=== PATIENT | female | born 1985 | race Hispanic/Latino ===

== ENCOUNTER 2020-07-22 22:42 | Inpatient (IN) | payer MEDICAID ==
[~2020-07-22] VITALS: Ht 157.5 cm; Wt 90.4 kg
[2020-07-22] MEDS ORDERED: ONDANSETRON HCL 4 MG/2 ML VIAL ONE (23:20)
[2020-07-22] MEDS ORDERED: KETOROLAC TROMETHAMINE 30MG/ML ONE (23:21)
[2020-07-22 23:22] LABS: BASOPHILS % (AUTO) 0.3 % (0.0-5.0); HEMATOCRIT 37.8 % (36-48); LYMPHOCYTES % (AUTO) 23.2 % (21.0-51.0); MEAN CORPUSCULAR HEMOGLOBIN 31.2 pg (27.0-33.0); MEAN CORPUSCULAR HGB CONC 36.5 g/dL (32.0-36.0); MEAN CORPUSCULAR VOLUME 85.3 fL (79-99); MONOCYTES % (AUTO) 4.9 % (3.0-13.0); NEUTROPHILS % (AUTO) 69.3 % (40.0-77.0); PLATELET COUNT (AUTO) 252 K/uL (130-400); RED BLOOD CELL COUNT(AUTO) 4.43 MIL/uL (4.00-5.50); RED CELL DISTRIBUTION WIDTH 12.4 % (11.0-15.5); WHITE BLOOD COUNT (AUTO) 7.1 K/uL (4.8-10.8)
[2020-07-22 23:31] LABS: INR 0.88 (0.85-1.15); PARTIAL THROMBOPLASTIN TIME 28.2 SEC (26.3-35.5); PROTHROMBIN TIME 9.6 SEC (9.6-11.6)
[2020-07-22 23:34] LABS: APPEARANCE,URINE Turbid (CLEAR); BILIRUBIN,URINE Negative (NEGATIVE); COLOR,URINE Yellow (YELLOW); GLUCOSE, URINE (UA) >=1000 mg/dL (NEGATIVE); KETONES,URINE Trace mg/dL (NEGATIVE); LEUKOCYTE ESTERASE ,URINE Trace (NEGATIVE); NITRATE,URINE Negative (NEGATIVE); OCCULT BLOOD,URINE Negative (NEGATIVE); PROTEIN,URINE POS 1+ mg/dL (NEGATIVE); UROBILINOGEN,URINE 0.2 mg/dL (0.2-1.0)
[2020-07-22 23:43] LABS: AMPHET/METH SCREEN,URINE NEGATIVE (NEGATIVE); BARBITURATE SCREEN, URINE NEGATIVE (NEGATIVE); BENZODIAZEPINES SCREEN,URINE NEGATIVE (NEGATIVE); CANNABINOID SCREEN,URINE NEGATIVE (NEGATIVE); COCAINE SCREEN,URINE NEGATIVE (NEGATIVE); OPIATE SCREEN,URINE NEGATIVE (NEGATIVE); PHENCYCLIDINE SCREEN,URINE NEGATIVE (NEGATIVE)
[2020-07-22 23:46] LABS: ALANINE AMINOTRANSFERASE 22 U/L (12-78); ALBUMIN 2.9 g/dL (3.5-5.0); ASPARTATE AMINOTRANSFERASE 18 U/L (10-37); BILIRUBIN,TOTAL 0.2 mg/dL (0.2-1.0); CARBON DIOXIDE 24 mmol/L (21-32); CREATINE KINASE, TOTAL 42 U/L (21-232); CREATININE 0.6 mg/dL (0.5-1.5); GLOMERULAR FILTR. RATE CALC 121 mL/min (>60); GLUCOSE,RANDOM 335 mg/dL (70-105); MYOGLOBIN 13 ng/mL (10-92); SODIUM SERUM 114 mmol/L (136-145); TOTAL PROTEIN, SERUM 5.3 g/dL (6.0-8.3); TROPONIN I < 0.04 ng/mL (0.00-0.06); UREA NITROGEN, BLOOD 10 mg/dL (7-18)
[2020-07-22 23:51] LABS: BACTERIA,URINE Rare /HPF (None Seen); RBC,URINE None Seen /HPF (0-1)
[2020-07-22 23:57] LABS: POTASSIUM 3.1 mmol/L (3.5-5.1)
[2020-07-22 23:58] LABS: CHLORIDE 84 mmol/L (101-111)
[2020-07-23] MEDS ORDERED: INSULIN HUMULIN R 100 UNIT/ML 3ML ONE (01:10)
[2020-07-23] MEDS ORDERED: POTASSIUM CHLORIDE 20 MEQ ERTAB PO ONE (01:41)
[2020-07-23] MEDS ORDERED: POTASSIUM CHLORIDE 20MEQ/100ML 100 ML IV PRN (04:00)
[2020-07-23] MEDS ORDERED: POTASSIUM CHLORIDE 10% ELIXIR 20 MEQ/15 ML UDCUP PO PRN (04:00)
[2020-07-23] MEDS ORDERED: LIDOCAINE HCL-MPF 1% 2ML VIAL IV PRN (04:00)
[2020-07-23] MEDS ORDERED: POTASSIUM CHLORIDE 20 MEQ ERTAB PO PRN (04:00)
[2020-07-23 04:32] VITALS: BP 134/90
[2020-07-23 05:14] LABS: HEMATOCRIT 34.9 % (36-48); RED BLOOD CELL COUNT(AUTO) 4.06 MIL/uL (4.00-5.50); RED CELL DISTRIBUTION WIDTH 12.6 % (11.0-15.5); WHITE BLOOD COUNT (AUTO) 6.6 K/uL (4.8-10.8)
[2020-07-23] MEDS ORDERED: ONDANSETRON HCL 4 MG/2 ML VIAL IVP PRN (05:30)
[2020-07-23] MEDS ORDERED: HYDRALAZINE HCL 20 MG/ML VIAL IV PRN (05:30)
[2020-07-23] MEDS ORDERED: GLUCAGON 1MG KIT 1 MG ML IM PRN (05:30)
[2020-07-23] MEDS ORDERED: DEXTROSE 50%-WATER 50 ML DISP.SYRIN IV PRN (05:30)
[2020-07-23] MEDS: SODIUM CHLORIDE 0.9% 1000ML 1,000 ML IV SCH ×2 (05:31→15:30)
[2020-07-23 06:06] LABS: POTASSIUM 3.7 mmol/L (3.5-5.1)
[2020-07-23 06:07] LABS: CREATININE 0.5 mg/dL (0.5-1.5)
[2020-07-23] MEDS: INSULIN R PO SS1 SQ SCH ×4 (06:20→20:20)
[2020-07-23 07:41] LABS: HEMATOCRIT 35.6 % (36-48); MEAN CORPUSCULAR HEMOGLOBIN 30.1 pg (27.0-33.0); MEAN CORPUSCULAR HGB CONC 34.6 g/dL (32.0-36.0); RED BLOOD CELL COUNT(AUTO) 4.09 MIL/uL (4.00-5.50); RED CELL DISTRIBUTION WIDTH 12.8 % (11.0-15.5); WHITE BLOOD COUNT (AUTO) 6.1 K/uL (4.8-10.8)
[2020-07-23 07:55] LABS: CREATININE 0.7 mg/dL (0.5-1.5); POTASSIUM 3.9 mmol/L (3.5-5.1)
[2020-07-23 08:00] VITALS: BP 133/88
[2020-07-23] MEDS: FAMOTIDINE 20MG TAB 20 MG TAB PO SCH (08:27)
[2020-07-23 08:43] LABS: HEMOGLOBIN A1C 11.6 % (4.0-6.0)
[2020-07-23 11:47] LABS: HEMATOCRIT 36.7 % (36-48); MEAN CORPUSCULAR HEMOGLOBIN 30.2 pg (27.0-33.0); MEAN CORPUSCULAR HGB CONC 34.6 g/dL (32.0-36.0); MEAN CORPUSCULAR VOLUME 87.2 fL (79-99); RED BLOOD CELL COUNT(AUTO) 4.21 MIL/uL (4.00-5.50); WHITE BLOOD COUNT (AUTO) 5.6 K/uL (4.8-10.8)
[2020-07-23 12:01] LABS: CREATININE 0.6 mg/dL (0.5-1.5); POTASSIUM 4.2 mmol/L (3.5-5.1)
[2020-07-23 12:46] VITALS: BP 110/84
[2020-07-23 15:30] LABS: HEMATOCRIT 36.9 % (36-48); MEAN CORPUSCULAR HEMOGLOBIN 30.1 pg (27.0-33.0); MEAN CORPUSCULAR HGB CONC 34.7 g/dL (32.0-36.0); MEAN CORPUSCULAR VOLUME 86.8 fL (79-99); RED BLOOD CELL COUNT(AUTO) 4.25 MIL/uL (4.00-5.50); RED CELL DISTRIBUTION WIDTH 12.7 % (11.0-15.5); WHITE BLOOD COUNT (AUTO) 5.6 K/uL (4.8-10.8)
[2020-07-23 15:48] LABS: CREATININE 0.6 mg/dL (0.5-1.5); POTASSIUM 3.8 mmol/L (3.5-5.1)
[2020-07-23 18:17] VITALS: BP 102/60
[2020-07-23 19:02] LABS: HEMATOCRIT 36.9 % (36-48); MEAN CORPUSCULAR HEMOGLOBIN 29.9 pg (27.0-33.0); MEAN CORPUSCULAR HGB CONC 34.4 g/dL (32.0-36.0); MEAN CORPUSCULAR VOLUME 86.8 fL (79-99); RED BLOOD CELL COUNT(AUTO) 4.25 MIL/uL (4.00-5.50); RED CELL DISTRIBUTION WIDTH 12.7 % (11.0-15.5); WHITE BLOOD COUNT (AUTO) 6.9 K/uL (4.8-10.8)
[2020-07-23 19:29] LABS: CREATININE 0.8 mg/dL (0.5-1.5); POTASSIUM 3.6 mmol/L (3.5-5.1)
[2020-07-23] MEDS: ACETAMINOPHEN 325 MG TAB PO PRN (20:02)
[2020-07-23 20:08] VITALS: BP 123/84
[2020-07-23 23:24] VITALS: BP 116/56
[2020-07-23 23:49] LABS: HEMATOCRIT 36.1 % (36-48); MEAN CORPUSCULAR HEMOGLOBIN 29.6 pg (27.0-33.0); MEAN CORPUSCULAR HGB CONC 34.3 g/dL (32.0-36.0); MEAN CORPUSCULAR VOLUME 86.2 fL (79-99); RED BLOOD CELL COUNT(AUTO) 4.19 MIL/uL (4.00-5.50); RED CELL DISTRIBUTION WIDTH 12.8 % (11.0-15.5); WHITE BLOOD COUNT (AUTO) 7.5 K/uL (4.8-10.8)
[2020-07-24] VITALS (7 sets, daily range): BP systolic 98–133; BP diastolic 56–91
[2020-07-24 00:02] LABS: CREATININE 0.7 mg/dL (0.5-1.5); POTASSIUM 3.3 mmol/L (3.5-5.1)
[2020-07-24] MEDS: SODIUM CHLORIDE 0.9% 1000ML 1,000 ML IV SCH ×2 (01:30→11:30)
[2020-07-24 05:30] LABS: HEMATOCRIT 35.3 % (36-48); MEAN CORPUSCULAR HEMOGLOBIN 29.9 pg (27.0-33.0); MEAN CORPUSCULAR HGB CONC 34.3 g/dL (32.0-36.0); MEAN CORPUSCULAR VOLUME 87.2 fL (79-99); RED BLOOD CELL COUNT(AUTO) 4.05 MIL/uL (4.00-5.50); RED CELL DISTRIBUTION WIDTH 12.8 % (11.0-15.5); WHITE BLOOD COUNT (AUTO) 6.8 K/uL (4.8-10.8)
[2020-07-24 05:59] LABS: ALBUMIN 2.7 g/dL (3.5-5.0); BILIRUBIN,DIRECT 0.1 mg/dL (0.0-0.3); BILIRUBIN,TOTAL 0.3 mg/dL (0.2-1.0); CREATININE 0.6 mg/dL (0.5-1.5); MAGNESIUM 1.5 mg/dL (1.80-2.40); POTASSIUM 3.5 mmol/L (3.5-5.1); TOTAL PROTEIN, SERUM 6.6 g/dL (6.0-8.3)
[2020-07-24] MEDS: INSULIN R PO SS1 SQ SCH ×4 (06:54→22:00)
[2020-07-24] MEDS: FAMOTIDINE 20MG TAB 20 MG TAB PO SCH (08:23)
--- NOTE | 2020-07-24 12:05 | NUR ---
MELISSA- SPOEKK TO PATIENT AT BEDSIDE STATES IS INDEPENDENT, NO DME, DRIVES, LIVES WITH 8 YEAR ONLY SON, MOM AND SISTER NEARBY, SEES DR. [place], HAS FOLLOW UP APPOINTMENT WITH [employer] [facility] TOMORROW DCP HOME, YORDAN TO FOLLOW NB: RN AND AIDE AT [facility] DESCRIBED PT SLOW, SLEEP, POSSIBLYLETHARGIC.? AGREE PT IS SLOW TO RESPOND. DESCRIBING HER FAMILY STRUCTURE, TALKED AOBUT HER BROTHER, WHO WHOM SHE WAS CLOSE TOO. FACE LIGHTS UP WHEN TALKS ABOUT HER SON STARTING SCHOOL THIS WEEK ONLINE. CM DOES NOT ASSESS LETHARGIC, JUST A BIT WITHDRAWN AND SLOW TO OPEN UP IN A CONVERSATION DCP IS HOME. TEXT TO [facility] RE DCP PLAN, MG 1.5, POSS DC AFTER REPLACEMENT?... PENDING RESPONSE Addendum: 07/24/20 at 1210 by KENDY ALBRECHT RN CM Amended: Links added.
[2020-07-24] MEDS ORDERED: MAGNESIUM 4GM PREMIX 100ML 100 ML IV PRN (12:15)
[2020-07-24] MEDS: LACTULOSE 20 GM/30 ML UDCUP PO SCH (12:50)
[2020-07-24] MEDS: INSULIN LISPRO 100 UNIT/ML 3ML SQ SCH (17:18)
[2020-07-24] MEDS ORDERED: INSULIN GLARGINE 100 UNITS/ML 10 ML VIAL SQ SCH (21:00)
[2020-07-25 03:26] VITALS: BP 94/55
[2020-07-25 06:24] LABS: BASOPHILS % (AUTO) 0.5 % (0.0-5.0); EOSINOPHILS % (AUTO) 2.9 % (0.0-8.0); HEMATOCRIT 38.7 % (36-48); LYMPHOCYTES % (AUTO) 20.5 % (21.0-51.0); MEAN CORPUSCULAR HEMOGLOBIN 29.8 pg (27.0-33.0); MEAN CORPUSCULAR HGB CONC 34.1 g/dL (32.0-36.0); MEAN CORPUSCULAR VOLUME 87.4 fL (79-99); MONOCYTES % (AUTO) 5.3 % (3.0-13.0); NEUTROPHILS % (AUTO) 69.7 % (40.0-77.0); PLATELET COUNT (AUTO) 218 K/uL (130-400); RED BLOOD CELL COUNT(AUTO) 4.43 MIL/uL (4.00-5.50); RED CELL DISTRIBUTION WIDTH 12.8 % (11.0-15.5); WHITE BLOOD COUNT (AUTO) 6.6 K/uL (4.8-10.8)
[2020-07-25] MEDS: INSULIN R PO SS1 SQ SCH ×2 (06:31→12:03)
[2020-07-25 06:39] LABS: CREATININE 0.5 mg/dL (0.5-1.5); MAGNESIUM 1.9 mg/dL (1.80-2.40); POTASSIUM 3.7 mmol/L (3.5-5.1)
--- NOTE | 2020-07-25 08:45 | NUR ---
AM ASSESSMENT PT SITTING IN BED, WATCHING TV. A/O X 4. NO SOB. NO DISTRESS NOTED. DENIES PAIN OR DISCOMFORT. DENIES PALPITATIONS. TELE:SR. DENIES N/V AND/OR DIARRHEA. FLUID RESTRICTION REINFORCED. UP AD NEY. INSTRUCTED TO CALL FOR ASSISTANCE. CALL ANGELA W/IN REACH.
[2020-07-25 08:53] VITALS: BP 104/70
[2020-07-25] MEDS ORDERED: POLYETHYLENE GLYCOL 3350 17 GM POWD.PACK PO SCH (09:00)
[2020-07-25] MEDS: FAMOTIDINE 20MG TAB 20 MG TAB PO SCH (09:07)
[2020-07-25] MEDS ORDERED: INSULIN GLARGINE 100 UNITS/ML 10 ML VIAL SQ SCH ×2 (09:45→21:00)
[2020-07-25] MEDS: INSULIN LISPRO 100 UNIT/ML 3ML SQ SCH ×2 (09:54→12:02)
[2020-07-25 10:53] LABS: CREATININE 0.7 mg/dL (0.5-1.5); THYROID STIMULATING HORMONE 0.43 uIU/mL (0.36-3.74)
[2020-07-25] MEDS: LACTULOSE 20 GM/30 ML UDCUP PO SCH (12:03)
[2020-07-25 12:51] VITALS: BP 88/58
[2020-07-25] MEDS ORDERED: METO10TA41 PO (13:35)
[2020-07-25] MEDS ORDERED: INSU3INS3 SQ (13:35)
[2020-07-25] MEDS: ACETAMINOPHEN 325 MG TAB PO PRN (14:50)
--- NOTE | 2020-07-25 14:55 | NUR ---
DISCHARGE VERBAL & WRITTEN DISCHARGE INSTRUCTIONS REVIEWED & GIVEN TO PT. QUESTIONS ENCOURAGED & CLARIFIED. PROPER CARE & PREVENTION OF HYPONATREMIA REVIEWED. DIABETES & INSULIN INFORMATION ALSO REVIEWED @ THIS TIME. NEW PRESCRIBED MEDICATIONS REVIEWED. PT INFORMED PRESCRIPTION TRANSMITTED TO PHARMACY. PT TO F/U W/PC IN 1 WEEK. TELE SERGO REMOVED. IV DC'D @ THIS TIME. PT TO GATHER PERSONAL BELONGINGS. WILL NOTIFY STAFF WHEN FAMILY ARRIVES TO TAKE PT HOME.
--- NOTE | 2020-07-25 16:20 | NUR ---
DISCHARGE FAMILY HERE TO TAKE PT HOME. PT TAKEN TO PRIVATE VEHICLE VIA WC BY MYSELF, José Miguel LAU RN. NO DISTRESS NOTED.
[2020-07-25 17:10] VITALS: BP 130/73
== END 2020-07-25 16:20 | disposition home or self-care (01) | DRG 48 ==
LOC: EDH 22:42 → OBSVTOIN 22:43 → INTOOBSV 22:43 → EDHIP 22:43 → 4CH 07-23 03:39
PROVIDERS: ADMIT Internal Medicine Critical Care Medicine; ATTEND Internal Medicine Critical Care Medicine
DX: E11.43 Type 2 diabetes mellitus with diabetic autonomic (poly)neuropathy (principal); E87.1 Hypo-osmolality and hyponatremia; E78.00 Pure hypercholesterolemia, unspecified; M19.90 Unspecified osteoarthritis, unspecified site; Z68.36 Body mass index [BMI] 36.0-36.9, adult; E66.9 Obesity, unspecified; K76.0 Fatty (change of) liver, not elsewhere classified; G47.33 Obstructive sleep apnea (adult) (pediatric); K31.84 Gastroparesis; R80.9 Proteinuria, unspecified; Z79.4 Long term (current) use of insulin; Z82.49 Family history of ischemic heart disease and other diseases of the circulatory system; Z83.3 Family history of diabetes mellitus; Z90.710 Acquired absence of both cervix and uterus; Z20.828 Contact with and (suspected) exposure to other viral communicable diseases
CPT/HCPCS: 36415; 71045; 76705; 80048; 80053; 80076; 80305; 81001; 82010; 82150; 82550; 82948; 83036; 83605; 83690; 83735; 83874; 84100; 84145; 84443; 84484; 85025; 85027; 85610; 85730; 87040; 87088; 87426; 93005; 99291; G0378; J1815; J1885; J2405; U0003

== ENCOUNTER 2021-08-17 14:46 | Inpatient (IN) | payer MEDICAID ==
[~2021-08-17] VITALS: Ht 154.9 cm; Wt 89.6 kg
[~2021-08-17 14:46] MED LIST: GABA300S PO; INSU3INS3 SQ; LINA72CA PO; METO10TA41 PO
[2021-08-17 16:00] LABS: BASOPHILS % (AUTO) 0.3 % (0.0-5.0); EOSINOPHILS % (AUTO) 0.5 % (0.0-8.0); HEMATOCRIT 39.3 % (36-48); LYMPHOCYTES % (AUTO) 8.6 % (21.0-51.0); MEAN CORPUSCULAR HEMOGLOBIN 29.5 pg (27.0-33.0); MEAN CORPUSCULAR HGB CONC 34.4 g/dL (32.0-36.0); MONOCYTES % (AUTO) 3.2 % (3.0-13.0); NEUTROPHILS % (AUTO) 86.9 % (40.0-77.0); PLATELET COUNT (AUTO) 233 K/uL (130-400); RED BLOOD CELL COUNT(AUTO) 4.57 MIL/uL (4.00-5.50); RED CELL DISTRIBUTION WIDTH 12.7 % (11.0-15.5); WHITE BLOOD COUNT (AUTO) 9.8 K/uL (4.8-10.8)
[2021-08-17 16:26] LABS: CARBON DIOXIDE 26 mmol/L (21-32); CHLORIDE 100 mmol/L (101-111); CREATININE 0.6 mg/dL (0.5-1.5); GLOMERULAR FILTR. RATE CALC 120 mL/min (>60); GLUCOSE,RANDOM 193 mg/dL (70-105); POTASSIUM 3.4 mmol/L (3.5-5.1); SODIUM SERUM 138 mmol/L (136-145); UREA NITROGEN, BLOOD 7 mg/dL (7-18)
[2021-08-17 16:37] LABS: ALANINE AMINOTRANSFERASE 41 U/L (12-78); ALBUMIN 3.5 g/dL (3.5-5.0); ALCOHOL, BLOOD < 3 mg/dL (0-10); ASPARTATE AMINOTRANSFERASE 25 U/L (10-37); BILIRUBIN,TOTAL 0.3 mg/dL (0.2-1.0); CREATINE KINASE, TOTAL 57 U/L (21-232); TOTAL PROTEIN, SERUM 8.1 g/dL (6.0-8.3)
[2021-08-17 16:39] LABS: ACETAMINOPHEN < 1 mcg/mL (10-30); SALICYLATE < 2.8 mg/dL (2.8-20.0)
[2021-08-17 16:47] LABS: APPEARANCE,URINE Clear (CLEAR); BILIRUBIN,URINE Negative (NEGATIVE); COLOR,URINE Yellow (YELLOW); GLUCOSE, URINE (UA) Negative (NEGATIVE); KETONES,URINE Negative (NEGATIVE); LEUKOCYTE ESTERASE ,URINE Trace (NEGATIVE); NITRATE,URINE Negative (NEGATIVE); OCCULT BLOOD,URINE Negative (NEGATIVE); PROTEIN,URINE Negative (NEGATIVE); UROBILINOGEN,URINE 0.2 mg/dL (0.2-1.0)
[2021-08-17 16:55] LABS: AMPHET/METH SCREEN,URINE NEGATIVE (NEGATIVE); BARBITURATE SCREEN, URINE NEGATIVE (NEGATIVE); BENZODIAZEPINES SCREEN,URINE NEGATIVE (NEGATIVE); CANNABINOID SCREEN,URINE NEGATIVE (NEGATIVE); COCAINE SCREEN,URINE NEGATIVE (NEGATIVE); OPIATE SCREEN,URINE NEGATIVE (NEGATIVE); PHENCYCLIDINE SCREEN,URINE NEGATIVE (NEGATIVE)
[2021-08-17 17:03] LABS: BACTERIA,URINE None Seen /HPF (None Seen); MUCUS,URINE None Seen LPF (None Seen); RBC,URINE 0-1 /HPF (0-1); SQUAMOUS EPITHELIAL CELL,UR None Seen /HPF (0-2); WBC,URINE 0-1 /HPF (0-1)
[2021-08-17] MEDS ORDERED: KETOROLAC 15MG/ML VIAL (15MG/ML) IV ONE (18:30)
[2021-08-17] MEDS ORDERED: ACETAMINOPHEN 325 MG TAB PO PRN (18:30)
[2021-08-17] MEDS ORDERED: KETOROLAC 15MG/ML VIAL (15MG/ML) ONE (19:56)
[2021-08-17] MEDS: DEXTROSE 5%-LACTATED RINGERS 1,000 ML IV SCH (19:57)
[2021-08-17] MEDS ORDERED: PIOG30TA70 PO (21:06)
[2021-08-17] MEDS ORDERED: OMEP40CA21 PO (21:06)
[2021-08-17] MEDS ORDERED: EMPA1TAB7 PO (21:06)
[2021-08-17] MEDS ORDERED: DICY10CA13 PO (21:06)
[2021-08-17 21:10] VITALS: BP 127/67
[2021-08-17] MEDS ORDERED: METOCLOPRAMIDE 10 MG/2 ML VIAL ONE (22:35)
[2021-08-17] MEDS ORDERED: ONDANSETRON 4MG INJ ONE (22:35)
[2021-08-17] MEDS ORDERED: ONDANSETRON 4MG INJ IVP ONE (23:00)
[2021-08-17] MEDS ORDERED: KETOROLAC 15MG/ML VIAL (15MG/ML) IV PRN (23:00)
[2021-08-17] MEDS ORDERED: METOCLOPRAMIDE 10 MG/2 ML VIAL IVP ONE (23:00)
[2021-08-18 04:34] VITALS: BP 127/79
[2021-08-18 06:41] LABS: BASOPHILS % (AUTO) 0.4 % (0.0-5.0); HEMATOCRIT 36.6 % (36-48); LYMPHOCYTES % (AUTO) 22.3 % (21.0-51.0); MEAN CORPUSCULAR HEMOGLOBIN 29.8 pg (27.0-33.0); MEAN CORPUSCULAR HGB CONC 34.4 g/dL (32.0-36.0); MEAN CORPUSCULAR VOLUME 86.5 fL (79-99); MONOCYTES % (AUTO) 6.8 % (3.0-13.0); NEUTROPHILS % (AUTO) 67.9 % (40.0-77.0); PLATELET COUNT (AUTO) 238 K/uL (130-400); RED BLOOD CELL COUNT(AUTO) 4.23 MIL/uL (4.00-5.50); RED CELL DISTRIBUTION WIDTH 12.9 % (11.0-15.5); WHITE BLOOD COUNT (AUTO) 8.4 K/uL (4.8-10.8)
[2021-08-18 06:59] LABS: BILIRUBIN,TOTAL 0.4 mg/dL (0.2-1.0); CREATININE 0.5 mg/dL (0.5-1.5); TOTAL PROTEIN, SERUM 7.1 g/dL (6.0-8.3)
[2021-08-18 07:02] LABS: POTASSIUM 2.9 mmol/L (3.5-5.1)
[2021-08-18 08:00] VITALS: BP 131/80
[2021-08-18] MEDS: DEXTROSE 5%-LACTATED RINGERS 1,000 ML IV SCH (09:28)
[2021-08-18] MEDS ORDERED: ONDANSETRON 4MG INJ IVP PRN (09:30)
[2021-08-18] MEDS ORDERED: KCL 20 MEQ ERTAB PO SCH (09:30)
[2021-08-18 12:00] VITALS: BP 112/68
[2021-08-18 16:00] VITALS: BP 135/78
[2021-08-18 20:00] VITALS: BP 120/79
[2021-08-18] MEDS: TRAZODONE HCL 50 MG TAB PO SCH (20:12)
[2021-08-19 00:05] VITALS: BP 106/63
[2021-08-19 04:19] LABS: CREATININE 0.5 mg/dL (0.5-1.5); POTASSIUM 3.4 mmol/L (3.5-5.1)
[2021-08-19 05:51] VITALS: BP 106/65
[2021-08-19] MEDS: INSULIN HUMULIN R 100 UNIT/ML 3ML SQ SCH ×4 (05:54→20:39)
[2021-08-19 07:43] VITALS: BP 112/55
[2021-08-19] MEDS: PAROXETINE HCL 20 MG TABLET PO SCH (08:41)
[2021-08-19 12:00] VITALS: BP 108/75
[2021-08-19 15:37] VITALS: BP 120/74
[2021-08-19] MEDS: METFORMIN HCL 500 MG TABLET PO SCH (17:23)
[2021-08-19] MEDS ORDERED: GLIM4TAB36 PO (18:58)
[2021-08-19] MEDS ORDERED: PIOG30TA10 PO (18:58)
[2021-08-19] MEDS ORDERED: METF-446 PO (18:58)
[2021-08-19 20:12] VITALS: BP 133/69
[2021-08-19] MEDS: TRAZODONE HCL 50 MG TAB PO SCH (20:38)
[2021-08-19] MEDS ORDERED: GLIMEPIRIDE 2 MG TABLET PO SCH (21:00)
[2021-08-20 00:24] VITALS: BP 90/45
[2021-08-20 04:24] VITALS: BP 90/53
[2021-08-20] MEDS: INSULIN HUMULIN R 100 UNIT/ML 3ML SQ SCH ×3 (06:09→16:30)
[2021-08-20 08:00] VITALS: BP 101/47
[2021-08-20] MEDS ORDERED: PIOGLITAZONE 30MG TAB PO SCH (09:00)
[2021-08-20] MEDS: METFORMIN HCL 500 MG TABLET PO SCH ×2 (09:04→16:39)
[2021-08-20] MEDS: PAROXETINE HCL 20 MG TABLET PO SCH (09:04)
[2021-08-20 12:00] VITALS: BP 107/82
== END 2021-08-20 17:55 | disposition home or self-care (01) | DRG 812 ==
LOC: EDH 14:46 → EDHIP 14:47 → 4BH 20:36
PROVIDERS: ADMIT Internal Medicine; ATTEND Internal Medicine
DX: T38.3X2A Poisoning by insulin and oral hypoglycemic [antidiabetic] drugs, intentional self-harm, initial encounter (principal); E11.40 Type 2 diabetes mellitus with diabetic neuropathy, unspecified; E11.649 Type 2 diabetes mellitus with hypoglycemia without coma; Z20.822 Contact with and (suspected) exposure to COVID-19; K74.60 Unspecified cirrhosis of liver; E66.01 Morbid (severe) obesity due to excess calories; K21.9 Gastro-esophageal reflux disease without esophagitis; F32.1 Major depressive disorder, single episode, moderate; E87.6 Hypokalemia; E78.00 Pure hypercholesterolemia, unspecified; Z68.37 Body mass index [BMI] 37.0-37.9, adult; Z79.4 Long term (current) use of insulin; Z79.84 Long term (current) use of oral hypoglycemic drugs; Z79.899 Other long term (current) drug therapy; Z91.51 Personal history of suicidal behavior; Y92.89 Other specified places as the place of occurrence of the external cause; Z90.710 Acquired absence of both cervix and uterus; Z91.14 Patient's other noncompliance with medication regimen; Z91.19 Patient's noncompliance with other medical treatment and regimen; Z82.5 Family history of asthma and other chronic lower respiratory diseases; Z82.3 Family history of stroke; Z82.49 Family history of ischemic heart disease and other diseases of the circulatory system
CPT/HCPCS: 36415; 70450; 71045; 80048; 80053; 80305; 81001; 82550; 82948; 83036; 83735; 84703; 85025; 87635; 93005; G0378; G0481; J1815; J1885; J2405; J2765; J3490

== ENCOUNTER 2024-06-21 12:24 | Emergency (ER) | payer MEDICAID ==
[~2024-06-21] VITALS: Ht 157.5 cm; Wt 80.3 kg
[~2024-06-21 12:24] MED LIST changes: +ALBU18HF7 IH; +ARIP5TAB51 PO; +AUD IH; +EMPA10TA PO; +ESCI-8 PO; -GABA300S PO; +INSLAN SQ; -INSU3INS3 SQ; -LINA72CA PO; +METF-446 PO; -METO10TA41 PO; +NALT50TA6 PO; +OMEP40CA21 PO; +PIOG30TA70 PO; +PRAZ1CAP5 PO
[2024-06-21 13:27] LABS: BASOPHILS # (AUTO) 0.03 K/uL (0.00-0.20); BASOPHILS % (AUTO) 0.3 % (0.0-5.0); EOSINOPHILS # (AUTO) 0.06 K/uL (0.00-0.70); EOSINOPHILS % (AUTO) 0.6 % (0.0-8.0); HEMATOCRIT 40.7 % (36-48); IMMATURE GRANULOCYTE ABSOLUTE 0.05 K/uL (0-1); MEAN CORPUSCULAR HEMOGLOBIN 29.5 pg (27.0-33.0); MEAN CORPUSCULAR HGB CONC 35.1 g/dL (32.0-36.0); MEAN CORPUSCULAR VOLUME 84.1 fL (79-99); MONOCYTES # (AUTO) 0.4 K/uL (0.1-1.0); MONOCYTES % (AUTO) 4.8 % (3.0-13.0); NEUTROPHILS # (AUTO) 7.7 K/uL (1.8-7.7); NEUTROPHILS % (AUTO) 82.8 % (40.0-77.0); PLATELET COUNT (AUTO) 288 K/uL (130-400); RED BLOOD CELL COUNT(AUTO) 4.84 MIL/uL (4.00-5.50); RED CELL DISTRIBUTION WIDTH 12.2 % (11.0-15.5); WHITE BLOOD COUNT (AUTO) 9.3 K/uL (4.8-10.8)
[2024-06-21] MEDS: ONDANSETRON 4MG INJ IVP ONE (13:30)
[2024-06-21] MEDS ORDERED: MORPHINE 2 MG SYG IVP ONE (13:30)
[2024-06-21 13:33] LABS: HCG,QUALITATIVE URINE NEGATIVE (NEGATIVE)
[2024-06-21 13:34] LABS: ADD UA MICROSCOPIC YES; APPEARANCE,URINE TURBID (CLEAR); BILIRUBIN,URINE NEGATIVE (NEGATIVE); COLOR,URINE YELLOW (YELLOW); GLUCOSE, URINE (UA) >=1000 mg/dL (NEGATIVE); KETONES,URINE 40 mg/dL (NEGATIVE); LEUKOCYTE ESTERASE ,URINE 500 Leu/uL (NEGATIVE); MUCUS,URINE MANY LPF (None Seen); NITRATE,URINE NEGATIVE (NEGATIVE); OCCULT BLOOD,URINE SMALL (NEGATIVE); PH,URINE 5.5 (5.0-8.0); PROTEIN,URINE 70 mg/dL (NEGATIVE); RBC,URINE 26-50 /HPF (0-1); SQUAMOUS EPITHELIAL CELL,UR MANY /HPF (0-2); UROBILINOGEN,URINE 0.2 mg/dL (0.2-1.0); WBC,URINE TNTC /HPF (0-1)
[2024-06-21 13:36] LABS: CREATININE 0.7 mg/dL (0.5-1.0); POTASSIUM 3.6 mmol/L (3.5-5.1)
[2024-06-21 13:41] LABS: ALBUMIN 3.6 g/dL (3.5-5.0); BILIRUBIN,TOTAL 0.5 mg/dL (0.2-1.0); TOTAL PROTEIN, SERUM 8.5 g/dL (6.0-8.3)
[2024-06-21] MEDS: 0.9%NACL 1000ML 1,000 ML IV ONE ×2 (14:43→14:49)
[2024-06-21] MEDS: INSULIN HUMULIN R 100 UNIT/ML 3ML IV ONE (14:46)
[2024-06-21] MEDS: KETOROLAC 30MG VIAL (30MG/ML) IVP ONE (15:03)
[2024-06-21] MEDS: KETOROLAC 30MG VIAL (30MG/ML) ONE (15:03)
[2024-06-21] MEDS: AMOX/CLAV 875/125MG TAB PO ONE (15:03)
[2024-06-21] MEDS: CEFTRIAXONE 1G VIAL IM ONE (15:42)
[2024-06-21] MEDS ORDERED: MACR100 PO (17:11)
[2024-06-21] MEDS ORDERED: ONDA-243 PO (17:11)
[2024-06-21] MEDS: METOCLOPRAMIDE 10 MG/2 ML VIAL IVP ONE (17:47)
[2024-06-21 17:52] VITALS: BP 134/78; PULSE 78; RESP 20; O2SAT 99
== END 2024-06-21 17:59 | disposition home or self-care (01) ==
LOC: EDH 12:24
DX: E11.65 Type 2 diabetes mellitus with hyperglycemia (principal); E86.0 Dehydration; N30.00 Acute cystitis without hematuria; R11.2 Nausea with vomiting, unspecified; J45.909 Unspecified asthma, uncomplicated; K21.9 Gastro-esophageal reflux disease without esophagitis; Z79.84 Long term (current) use of oral hypoglycemic drugs; Z79.899 Other long term (current) drug therapy; Z88.5 Allergy status to narcotic agent; Z90.710 Acquired absence of both cervix and uterus
CPT/HCPCS: 99284; 96374; 96361; 96375; 80053; 83690; 85025; 87086; 82948; 82010; 81001; 81025; 36415; 96372; J1815; J7030 ×2; J0696 ×2; J1885; J2765; J2270; J2405

== ENCOUNTER 2024-10-22 22:18 | Emergency (ER) | payer MEDICAID ==
[~2024-10-22] VITALS: Ht 157.5 cm; Wt 75.3 kg
[~2024-10-22 22:18] MED LIST changes: +MACR100 PO; +ONDA-243 PO
[2024-10-22] MEDS: ketOROlac 15MG/ML VIAL (15MG/ML) ONE (22:47)
[2024-10-22] MEDS: ketOROlac 15MG/ML VIAL (15MG/ML) IV ONE (22:47)
[2024-10-22] MEDS: FAMOTIDINE 20MG VIAL IV ONE ×2 (22:47→22:48)
[2024-10-22] MEDS: 0.9%NACL 1000ML 1,000 ML IV ONE ×2 (22:47)
[2024-10-22 22:48] LABS: BASOPHILS # (AUTO) 0.03 K/uL (0.00-0.20); BASOPHILS % (AUTO) 0.4 % (0.0-5.0); EOSINOPHILS # (AUTO) 0.18 K/uL (0.00-0.70); EOSINOPHILS % (AUTO) 2.2 % (0.0-8.0); HEMATOCRIT 37.7 % (36-48); IMMATURE GRANULOCYTE ABSOLUTE 0.05 K/uL (0-1); LYMPHOCYTES # (AUTO) 1.6 K/uL (1.0-4.8); LYMPHOCYTES % (AUTO) 19.7 % (21.0-51.0); MEAN CORPUSCULAR HEMOGLOBIN 29.5 pg (27.0-33.0); MEAN CORPUSCULAR VOLUME 84.3 fL (79-99); MONOCYTES # (AUTO) 0.5 K/uL (0.1-1.0); NEUTROPHILS # (AUTO) 5.9 K/uL (1.8-7.7); NEUTROPHILS % (AUTO) 71.1 % (40.0-77.0); PLATELET COUNT (AUTO) 239 K/uL (130-400); RED BLOOD CELL COUNT(AUTO) 4.47 MIL/uL (4.00-5.50); RED CELL DISTRIBUTION WIDTH 12.6 % (11.0-15.5); WHITE BLOOD COUNT (AUTO) 8.3 K/uL (4.8-10.8)
[2024-10-22 23:02] LABS: CARBON DIOXIDE 27 mmol/L (21-32); CHLORIDE 103 mmol/L (101-111); CREATININE 0.6 mg/dL (0.5-1.0); GLOMERULAR FILTR. RATE CALC 117 mL/min (>90); GLUCOSE,RANDOM 217 mg/dL (70-105); POTASSIUM 3.3 mmol/L (3.5-5.1); SODIUM SERUM 138 mmol/L (136-145); UREA NITROGEN, BLOOD 11 mg/dL (7-18)
[2024-10-22 23:04] LABS: ALANINE AMINOTRANSFERASE 31 U/L (12-78); ALBUMIN 3.2 g/dL (3.5-5.0); ASPARTATE AMINOTRANSFERASE 17 U/L (10-37); BILIRUBIN,DIRECT < 0.1 mg/dL (0.0-0.3); BILIRUBIN,TOTAL 0.4 mg/dL (0.2-1.0); TOTAL PROTEIN, SERUM 7.5 g/dL (6.0-8.3)
[2024-10-23] MEDS: ketOROlac 15MG/ML VIAL (15MG/ML) IV ONE (00:55)
--- NOTE | 2024-10-23 00:58 | HMCIMG ---
US ABDOMINAL RUQ\E\LTD HISTORY: Abdominal pain COMPARISON: None TECHNIQUE: Right upper quadrant abdominal ultrasound study was performed. FINDINGS: Liver measures 18 cm. Pancreas not well seen limiting evaluation. Liver is echogenic consistent with liver parenchymal disease. No gallstone is seen. Common duct measures 3 mm. No evidence of gallbladder wall thickening is seen. Right kidney measures 11 x 4 x 5 cm. No hydronephrosis is seen of the right kidney. IMPRESSION: 1. No gallstones or ductal dilatation is seen. 2. No hydronephrosis is seen.
[2024-10-23] MEDS ORDERED: IOHEXOL-350 75 ML VIAL IV ONE (01:00)
--- NOTE | 2024-10-23 01:32 | HMCIMG ---
CT ABDOMEN/PELVIS W/CONTRAST HISTORY: Abdominal pain COMPARISON: 05/04/2024 TECHNIQUE: Multiple sequential axial images of the abdomen and pelvis were obtained from the dome of the diaphragm through symphysis pubis. Patient was not given contrast through intravenous route. Oral contrast was not given. FINDINGS: No pleural effusion is seen bilaterally. There is no evidence of parenchymal disease or pulmonary nodule of the visualized lower lungs. Degenerative changes of the thoracolumbar spine are present. The heart is not enlarged. Liver is enlarged with fatty changes measuring 19 cm. Sludge material is seen in the gallbladder. The liver, spleen, adrenal glands and pancreas are unremarkable. There is no evidence of hydronephrosis bilaterally. No evidence of renal stone is seen. Fecal material is seen in the colon. There are normal size retroperitoneal and mesenteric lymph nodes. No ascites is seen. No CT evidence of acute appendicitis is seen. Clinical correlation is recommended. There is septated left ovarian cyst measuring 3.7 x 3.5 cm. There is also septated right ovarian cyst with the largest cyst measuring 3.7 cm. Pelvic sidewalls are symmetric bilaterally. Bladder is well distended without wall thickening. IMPRESSION: 1. Sludge material in the gallbladder. Bilateral ovarian cysts. No ascites. CT was performed with one or more following dose reduction techniques: automated exposure control, adjustment of the mA and kv according to patient's size, or use of a iterative reconstruction technique.
[2024-10-23 01:38] VITALS: BP 120/74; PULSE 77; RESP 18; TEMP 98.7; O2SAT 97
[2024-10-23] MEDS ORDERED: KETO10TA2 PO (02:15)
[2024-10-23 02:17] LABS: ADD UA MICROSCOPIC YES; APPEARANCE,URINE CLEAR (CLEAR); BILIRUBIN,URINE NEGATIVE (NEGATIVE); COLOR,URINE YELLOW (YELLOW); GLUCOSE, URINE (UA) 500 mg/dL (NEGATIVE); KETONES,URINE NEGATIVE (NEGATIVE); LEUKOCYTE ESTERASE ,URINE NEGATIVE Leu/uL (NEGATIVE); NITRATE,URINE NEGATIVE (NEGATIVE); OCCULT BLOOD,URINE NEGATIVE (NEGATIVE); PROTEIN,URINE 30 mg/dL (NEGATIVE); UROBILINOGEN,URINE 0.2 mg/dL (0.2-1.0)
--- NOTE | 2024-10-23 02:18 | ERN ---
General Chief Complaint: Abdominal Pain Stated Complaint: RUQ PAIN, N/V/D Time Seen by MD: 22:22 Time Seen by Midlevel: 22:22 Source: patient History of Present Illness Initial Comments Patient is a 39-year-old female with a past medical history of type 2 diabetes and asthma being brought in by EMS for evaluation of right upper quadrant abdominal pain that has been ongoing for the last three days. Associated symptoms include nausea and vomiting and diarrhea. No fever, chills, chest pain, shortness for breath, blood in stool, or any other symptoms reported at this time. Patient does report having a history of gallstones. Denies any other complaints at this time. Allergies: Coded Allergies: ondansetron (Unverified Allergy, Mild, 05/05/24) morphine (Unverified Allergy, Unknown, HALLUCINATIONS, 06/21/24) Home Meds Active Scripts Ketorolac Tromethamine (Ketorolac Tromethamine) 10 Mg Tablet, 1 TAB PO TID for pain for 5 Days, #15 TAB 0 Refills Prov:DA ALMANZA 10/23/24 Nitrofurantoin/Nitrofuran Mac (Macrobid) 100 Mg Cap, 1 CAP PO BID for 7 Days, #14 CAP 0 Refills Prov:TOMAS QUINONEZ GENERAL I FARMWORKER 06/21/24 Ondansetron (Ondansetron Odt) 4 Mg Tab.rapdis, 4 MG PO Q6HPRN PRN for nausea, #16 TAB 0 Refills Prov:TOMAS QUINONEZ GENERAL I FARMWORKER 06/21/24 Reported Medications Escitalopram Oxalate (Escitalopram Oxalate) 10 Mg Tablet, 2 TAB PO DAILY 05/04/24 Naltrexone HCl (Naltrexone HCl) 50 Mg Tablet, 50 MG PO HS, TAB 05/04/24 Omeprazole (Omeprazole) 40 Mg Capsule.dr, 40 MG PO DAILY, CAP 05/04/24 Empagliflozin (Jardiance) 10 Mg Tablet, 10 MG PO DAILY, TAB 05/04/24 Prazosin HCl (Prazosin HCl) 1 Mg Capsule, 1 MG PO HS, CAP 05/04/24 Aripiprazole (Aripiprazole) 5 Mg Tablet, 5 MG PO DAILY, TAB 05/04/24 Insulin Glargine,Hum.rec.anlog (Lantus) 100 Unit/Ml Inj, 100 UNITS SQ HS, ML 05/04/24 Albuterol Sulfate (Ventolin Hfa) 90 Mcg Hfa.aer.ad, 2 GM IH QIDP PRN for SHORTNESS OF BREATH, INHALER 05/04/24 Albuterol Sulfate (Albuterol Sulfate) 2.5 Mg/0.5 Ml Vial.neb, 2.5 MG IH BID, INH 05/04/24 Metformin HCl (Metformin HCl) 1,000 Mg Tablet, 1000 MG PO BIDMEALS, TAB 08/19/21 Pioglitazone HCl (Pioglitazone HCl) 30 Mg Tablet, 30 MG PO DAILY, TAB 08/17/21 Omeprazole (Omeprazole) 40 Mg Capsule.dr, 40 MG PO DAILY, CAP 08/17/21 Past Medical History Past Medical History: Asthma, Diabetes-Type II, GERD Past Surgical History: Hysterectomy Family History Family History: HTN Social History Social History: Negative, Lives with family Female( History) History: Not Applicable ROS Dictation CONSTITUTIONAL: Negative except for HPI HEAD/FACE: Negative except for HPI EENT: Negative except for HPI RESPIRATORY: Negative except for HPI GASTROINTESTINAL/ABDOMINAL: Negative except for HPI GENITOURINARY: Negative except for HPI MUSCULOSKELETAL: Negative except for HPI INTEGUMENTARY: Negative except for HPI NEUROLOGICAL/PSYCH: Negative except for HPI HEMATOLOGIC/LYMPHATIC: Negative except for HPI All Systems Negative, Except as noted above. 13 point review of systems assessed and all negative except for above. Physical Exam Physical Exam Dictation Vital Signs reviewed General Appearance: Alert, oriented x 3, no acute distress, well developed, nourished. Head and Face: non-traumatic. Eyes: PERRL, pink conjunctivas, eyelid no trauma, anterior chamber with arcus senilis. Ears: Pinnas intact and no signs of trauma or erythema ear canals clear and no discharge TM no erythema Nose: No discharge, no bleeding. Oropharynx: Mouth normal, tongue pink, pharynx clear,no erythema, tonsils no exudates, no abscesses noted, mucous membrane moist Neck: Supple, non-tender, no thyromegaly, no masses, no JVD, no bruits Breast:Deferred Chest:No tenderness, no crepitus, no paradoxical movement, no retractions Lungs:Clear, well-ventilated, symmetric, no rales, no wheezing, no rhonchi, no stridor, good breath sounds bilaterally Heart: Regular rate, regular rhythm, no murmur, no gallops Vascular: no peripheral edema, Abdomen: Soft, positive bowel sounds, nondistended, no guarding, Right upper quadrant abdominal tenderness, no rebound, no masses no hepatomegaly, no splenomegaly, no Jay's sign, no hernias. Rectal: Deferred Genital: Deferred Neurological: Normal speech, motor function intact, sensory function intact Musculoskeletal: Neck nontender, full range of motion, back nontender, full range of motion, Extremities: nontender, full range of motion Skin: Color pink, dry, no turgor, no rash, no lacerations, no abrasions, no contusions. Lymphatic: Deferred Results Laboratory and Microbiology Lab and Micro Result Laboratory Tests Test 10/22/24 22:30 10/23/24 02:03 White Blood Count 8.3 K/uL (4.8-10.8) Red Blood Count 4.47 MIL/uL (4.00-5.50) Hemoglobin 13.2 g/dL (12.0-16.0) Hematocrit 37.7 % (36-48) Mean Corpuscular Volume 84.3 fL (79-99) Mean Corpuscular Hemoglobin 29.5 pg (27.0-33.0) Mean Corpuscular Hemoglobin Concent 35.0 g/dL (32.0-36.0) Red Cell Distribution Width 12.6 % (11.0-15.5) Platelet Count 239 K/uL (130-400) Mean Platelet Volume 8.8 fL (7.5-10.5) Immature Granulocyte % (Auto) 0.6 % (0-1) Neutrophils (%) (Auto) 71.1 % (40.0-77.0) Lymphocytes (%) (Auto) 19.7 % (21.0-51.0) L Monocytes (%) (Auto) 6.0 % (3.0-13.0) Eosinophils (%) (Auto) 2.2 % (0.0-8.0) Basophils (%) (Auto) 0.4 % (0.0-5.0) Neutrophils # (Auto) 5.9 K/uL (1.8-7.7) Lymphocytes # (Auto) 1.6 K/uL (1.0-4.8) Monocytes # (Auto) 0.5 K/uL (0.1-1.0) Eosinophils # (Auto) 0.18 K/uL (0.00-0.70) Basophils # (Auto) 0.03 K/uL (0.00-0.20) Absolute Immature Granulocyte (auto 0.05 K/uL (0-1) Nucleated Red Blood Cells 0.0 % (0.0-0.19) Sodium Level 138 mmol/L (136-145) Potassium Level 3.3 mmol/L (3.5-5.1) L Chloride Level 103 mmol/L (101-111) Carbon Dioxide Level 27 mmol/L (21-32) Blood Urea Nitrogen 11 mg/dL (7-18) Creatinine 0.6 mg/dL (0.5-1.0) Glomerular Filtration Rate Calc 117 mL/min (>90) Random Glucose 217 mg/dL (70-105) H Lactic Acid Level 2.3 mmol/L (0.8-2.5) Total Calcium 8.5 mg/dL (8.5-10.1) Total Bilirubin 0.4 mg/dL (0.2-1.0) Direct Bilirubin < 0.1 mg/dL (0.0-0.3) Aspartate Amino Transf (AST/SGOT) 17 U/L (10-37) Alanine Aminotransferase (ALT/SGPT) 31 U/L (12-78) Alkaline Phosphatase 88 U/L (50-136) Total Protein 7.5 g/dL (6.0-8.3) Albumin 3.2 g/dL (3.5-5.0) L Lipase 30 U/L (16-77) Urine Color YELLOW (YELLOW) Urine Appearance CLEAR (CLEAR) Urine pH 6.0 (5.0-8.0) Urine Specific [place] OVER (1.001-1.031) Urine Protein 30 mg/dL (NEGATIVE) H Urine Glucose (UA) 500 mg/dL (NEGATIVE) H Urine Ketones NEGATIVE mg/dL (NEGATIVE) Urine Occult Blood NEGATIVE (NEGATIVE) Urine Nitrate NEGATIVE (NEGATIVE) Urine Bilirubin NEGATIVE mg/dL (NEGATIVE) Urine Urobilinogen 0.2 mg/dL (0.2-1.0) Urine Leukocyte Esterase NEGATIVE Teto/uL Labs Reviewed?: Yes MDM MDM: Patient is a 39-year-old female with a past medical history of type 2 diabetes and asthma being brought in by EMS for evaluation of right upper quadrant abdominal pain that has been ongoing for the last three days. Associated symptoms include nausea and vomiting and diarrhea. No fever, chills, chest pain, shortness for breath, blood in stool, or any other symptoms reported at this time. Patient does report having a history of gallstones. Denies any other complaints at this time. On physical examination patient appears to be uncomfortable secondary to abdominal pain. She has mild right upper quadrant abdominal tenderness with no rebound or guarding. Patient was given 15th Toradol IV in the emergency department. Her CBC does not show any leukocytosis. Her chemistries unremarkable. Her liver function tests are normal including her bilirubin. No evidence of obstruction. A gallbladder ultrasound was performed which does not show any gallstones or ductal dilation however on repeat examination patient is in significant amount of pain. A 2nd dose of15 mg of IV Toradol were administered. A CT scan was obtained to rule out obstruction versus pancreatitis versus acalculous cholecystitis versus any other acute intra-abdominal pathology however CT scan only shows some sludge in the gallblad angeline with no gallbladder wall thickening or signs of acute cholecystitis. The patient will be discharged home with a follow up with your primary care provider. She will need to see a general surgeon outpatient for further evaluation. Return precautions discussed Differential diagnosis: Acute cholecystitis, biliary colic, pancreatitis, small-bowel obstruction There are no social concerns with this patient. Prescription drug management Prescriptions will include: Medical management and examination interpretation discussions were had by me with other qualified healthcare professionals as indicated for the patient's care. ED Course Orders Procedure Category Date Status Time Cbc With Differential LAB 10/22/24 Complete 22:22 Basic Metabolic Panel LAB 10/22/24 Complete 22:22 Lipase LAB 10/22/24 Complete 22:22 Lactic Acid LAB 10/22/24 Complete 22:22 Hepatic Function Panel LAB 10/22/24 Complete 22:22 Urinalysis Profile LAB 10/22/24 In Process 22:22 Us Abdominal Ruq\Ltd US 10/22/24 Resulted 22:22 Ketorolac PHA 10/22/24 Complete Tromethamine 15mg/Ml 22:30 Famotidine 20mg Vial PHA 10/22/24 Complete (Pepcid 20mg Vial) 22:30 0.9%Nacl 1000ml (Ns PHA 10/22/24 Complete 1000ml) 22:30 Ketorolac PHA 10/22/24 Complete Tromethamine 15mg/Ml 22:30 0.9%Nacl 1000ml (Ns PHA 10/22/24 Complete 1000ml) 22:30 Famotidine 20mg Vial PHA 10/22/24 Complete (Pepcid 20mg Vial) 22:30 Ct Abdomen/Pelvis CT 10/23/24 Resulted W/Contrast 00:35 Ketorolac PHA 10/23/24 Complete Tromethamine 15mg/Ml 01:00 Iohexol (Omnipaque) PHA 10/23/24 Complete 01:00 Lactic Acid (Removed) LAB 10/23/24 Logged 01:56 Current Medications Medications (Trade) Dose Ordered Sig/Erica Route PRN Reason Start Time Stop Time Status Last Admin Dose Admin Famotidine (Pepcid 20mg Vial) 20 mg ONCE ONCE IV 10/22/24 22:30 10/22/24 22:44 DC 10/22/24 22:47 Famotidine (Pepcid 20mg Vial) 20 mg STK-MED ONCE IV 10/22/24 22:30 10/22/24 22:34 DC Iohexol (Omnipaque) 75 ml STK-MED ONCE IV 10/23/24 01:00 10/23/24 01:01 DC Ketorolac Tromethamine (toRADol) 15 mg ONCE ONCE IV 10/22/24 22:30 10/22/24 22:44 DC 10/22/24 22:47 Ketorolac Tromethamine (toRADol) 15 mg ONCE ONCE IV 10/23/24 01:00 10/23/24 01:01 DC 10/23/24 00:55 Ketorolac Tromethamine (toRADol) 15 mg STK-MED ONCE .ROUTE 10/22/24 22:30 10/22/24 22:34 DC Sodium Chloride 1,000 ml @ 0 mls/hr ONCE ONCE IV 10/22/24 22:30 10/22/24 22:44 DC 10/22/24 22:47 Sodium Chloride 1,000 ml @ As Directed STK-MED ONCE IV 10/22/24 22:30 10/22/24 22:34 DC Vital Signs Date Time Temp Pulse Resp B/P (MAP) Pulse Ox O2 Delivery O2 Flow Rate FiO2 10/23/24 01:38 98.8 77 18 120/74 97 Room Air* 0 21 10/23/24 00:09 74 18 117/80 97 Room Air* 0 21 10/22/24 22:37 99.0 84 20 119/78 97 Room Air* 0 21 10/22/24 22:21 99.0 92 20 153/87 97 Room Air 0 10/22/24 22:20 99.0 92 20 153/87 97 Room Air* 0 21 [facility] [address] [place] [address] IMAGING REPORT Signed PATIENT: RINA REAVES MR#: [id number] : 1985 SEX: F AGE: 39 LOCATION: [facility] ORDER STATUS: REG REPORT#: [id number] SERVICE REASON: mid epigastric ruq abd pain ORDERING PHYSICIAN: DA ALMANZA PROCEDURE: ABD PEL W - CT ABDOMEN/PELVIS W/CONTRAST CT ABDOMEN/PELVIS W/CONTRAST HISTORY: Abdominal pain COMPARISON: 05/04/2024 TECHNIQUE: Multiple sequential axial images of the abdomen and pelvis were obtained from the dome of the diaphragm through symphysis pubis. Patient was not given contrast through intravenous route. Oral contrast was not given. FINDINGS: No pleural effusion is seen bilaterally. There is no evidence of parenchymal disease or pulmonary nodule of the visualized lower lungs. Degenerative changes of the thoracolumbar spine are present. The heart is not enlarged. Liver is enlarged with fatty changes measuring 19 cm. Sludge material is seen in the gallbladder. The liver, spleen, adrenal glands and pancreas are unremarkable. There is no evidence of hydronephrosis bilaterally. No evidence of renal stone is seen. Fecal material is seen in the colon. There are normal size retroperitoneal and mesenteric lymph nodes. No ascites is seen. No CT evidence of acute appendicitis is seen. Clinical correlation is recommended. There is septated left ovarian cyst measuring 3.7 x 3.5 cm. There is also septated right ovarian cyst with the largest cyst measuring 3.7 cm. Pelvic sidewalls are symmetric bilaterally. Bladder is well distended without wall thickening. IMPRESSION: 1. Sludge material in the gallbladder. Bilateral ovarian cysts. No ascites. CT was performed with one or more following dose reduction techniques: automated exposure control, adjustment of the mA and kv according to patient's size, or use of a iterative reconstruction technique. DICTATED BY: KELSI ZULETA MD DATE: 10/23/24121 ELECTRONICALLY SIGNED BY: KELSI ZULETA MD DATE: 10/23/24131 [facility] [address] [place] [address] IMAGING REPORT Signed PATIENT: RINA REAVES MR#: [id number] : 1985 SEX: F AGE: 39 LOCATION: [facility] ORDER 43 STATUS: REG ER REPORT#: [id number] SERVICE 21 REASON: ruq abd pain with n/v/ r/o acute cholecystitis ORDERING PHYSICIAN: DA ALMANZA PROCEDURE: [id number] - US ABDOMINAL RUQ\LTD US ABDOMINAL RUQ\E\LTD HISTORY: Abdominal pain COMPARISON: None TECHNIQUE: Right upper quadrant abdominal ultrasound study was performed. FINDINGS: Liver measures 18 cm. Pancreas not well seen limiting evaluation. Liver is echogenic consistent with liver parenchymal disease. No gallstone is seen. Common duct measures 3 mm. No evidence of gallbladder wall thickening is seen. Right kidney measures 11 x 4 x 5 cm. No hydronephrosis is seen of the right kidney. IMPRESSION: 1. No gallstones or ductal dilatation is seen. 2. No hydronephrosis is seen. DICTATED BY: KELSI ZULETA MD DATE: 10/23/2453 ELECTRONICALLY SIGNED BY: KELSI ZULETA MD DATE: 10/23/2457 DX & DISP Disposition: Discharge Departure Impression: Primary Impression: Sludge in gallbladder Condition: Stable Scripts Ketorolac Tromethamine (Ketorolac Tromethamine) 10 Mg Tablet 1 TAB PO TID for pain for 5 Days, #15 TAB 0 Refills Prov: DA ALMANZA 10/23/24 Additional Instructions: Your blood work today is unremarkable. Your gallbladder ultrasound does not show any evidence of gallstones or common bile duct dilation. Your CT scan shows some small amount of sludge in the gallbladder which could be causing your pain. You will need to follow up with your primary care doctor for a possible referral to a general surgeon for outpatient evaluation. If you develop any new or worsening symptoms please report to the ER for further evaluation. Referrals: MARLENA ZAVALA DO (PCP) Time of Disposition: 02:14 I have reviewed the case, and I agree with, Diagnosis and Plan I performed the substantive portion of the visit. I have reviewed and personally made and approve the management plan that is documented in the note by myself or the CHAUNCEY. I acknowledge for responsibility for the patient's management plan. DA ALMANZA Oct 23, 2024 02:18
[2024-10-23 02:21] LABS: BACTERIA,URINE RARE /HPF (None Seen); MUCUS,URINE MANY LPF (None Seen); SQUAMOUS EPITHELIAL CELL,UR MANY /HPF (0-2)
== END 2024-10-23 02:23 | disposition home or self-care (01) ==
LOC: EDH 22:18 → EDBD 22:18 → EDH 10-23 02:23
DX: K82.8 Other specified diseases of gallbladder (principal); N83.201 Unspecified ovarian cyst, right side; N83.202 Unspecified ovarian cyst, left side; E11.9 Type 2 diabetes mellitus without complications; J45.909 Unspecified asthma, uncomplicated; K21.9 Gastro-esophageal reflux disease without esophagitis; Z79.84 Long term (current) use of oral hypoglycemic drugs; Z79.899 Other long term (current) drug therapy; Z88.5 Allergy status to narcotic agent; Z90.710 Acquired absence of both cervix and uterus
CPT/HCPCS: 99285; 96374; 76705; 96361; 96375 ×2; 80076; 80048; 83690; 85025; 83605; 81001; 36415; 74177; J3490; J7030; J1885 ×2; Q9967

== ENCOUNTER 2025-06-11 03:10 | Emergency (ER) | payer MEDICAID ==
[~2025-06-11] VITALS: Ht 157.5 cm; Wt 81.6 kg
[~2025-06-11 03:10] MED LIST changes: +KETO10TA2 PO
--- NOTE | 2025-06-11 03:24 | ERN ---
ED Note History of Present Illness Stated Complaint: CHEST PAIN ONSET 2100 that has chest pain that has tender to palpation. The denies any previous heart attacksorstrokes Chief Complaint: Chest Pain Time Seen by MD: 03:22 Allergies: Coded Allergies: ondansetron (Unverified Allergy, Mild, 05/05/24) morphine (Unverified Allergy, Unknown, HALLUCINATIONS, 06/21/24) Home Meds Active Scripts Ketorolac Tromethamine (Ketorolac Tromethamine) 10 Mg Tablet, 1 TAB PO TID for pain for 5 Days, #15 TAB 0 Refills Prov:DA ALMANZA 10/23/24 Nitrofurantoin/Nitrofuran Mac (Macrobid) 100 Mg Cap, 1 CAP PO BID for 7 Days, #14 CAP 0 Refills Prov:TOMAS QUINONEZ NP 06/21/24 Ondansetron (Ondansetron Odt) 4 Mg Tab.rapdis, 4 MG PO Q6HPRN PRN for nausea, #16 TAB 0 Refills Prov:TOMAS QUINONEZ NP 06/21/24 Reported Medications Escitalopram Oxalate (Escitalopram Oxalate) 10 Mg Tablet, 2 TAB PO DAILY 05/04/24 Naltrexone HCl (Naltrexone HCl) 50 Mg Tablet, 50 MG PO HS, TAB 05/04/24 Omeprazole (Omeprazole) 40 Mg Capsule.dr, 40 MG PO DAILY, CAP 05/04/24 Empagliflozin (Jardiance) 10 Mg Tablet, 10 MG PO DAILY, TAB 05/04/24 Prazosin HCl (Prazosin HCl) 1 Mg Capsule, 1 MG PO HS, CAP 05/04/24 Aripiprazole (Aripiprazole) 5 Mg Tablet, 5 MG PO DAILY, TAB 05/04/24 Insulin Glargine,Hum.rec.anlog (Lantus) 100 Unit/Ml Inj, 100 UNITS SQ HS, ML 05/04/24 Albuterol Sulfate (Ventolin Hfa) 90 Mcg Hfa.aer.ad, 2 GM IH QIDP PRN for SHORTNESS OF BREATH, INHALER 05/04/24 Albuterol Sulfate (Albuterol Sulfate) 2.5 Mg/0.5 Ml Vial.neb, 2.5 MG IH BID, INH 05/04/24 Metformin HCl (Metformin HCl) 1,000 Mg Tablet, 1000 MG PO BIDMEALS, TAB 08/19/21 Pioglitazone HCl (Pioglitazone HCl) 30 Mg Tablet, 30 MG PO DAILY, TAB 08/17/21 Omeprazole (Omeprazole) 40 Mg Capsule.dr, 40 MG PO DAILY, CAP 08/17/21 Past Medical History Past Medical History: Asthma, Diabetes-Type II, High Cholesterol Surgical History: Hysterectomy Family History: HTN Social History: Negative, Lives with family History: Not Applicable Review of System Dictation Constitutional: Negative for fever,chills, and weight loss Eyes: Negative for injury, pain,redness, and discharge ENT: Negative for injury,pain or swelling Cardiovascular: Negative for chest pain, palpitations, and edema Respiratory: Negative for shortness of breath, cough, and wheezing, Abdomen/GI: Negative for abdominal pain, nausea, vomiting, diarrhea, and constipation Back: Negative for injury and pain : Negative for injury, bleeding and discharge MS/Extremity: Negative for injury and deformity Skin: Negative for rash, and discoloration Neuro: Negative for headache, weakness, numbness, tingling, and seizure Psych: Negative for suicide ideation, homicidal ideation, and hallucinations Initial Vital Sign VS Vital Signs Date Time Temp Pulse Resp B/P (MAP) Pulse Ox O2 Delivery O2 Flow Rate FiO2 06/11/25 03:11 98.2 107 17 125/83 98 Room Air 0 06/11/25 03:30 21 Physical Exam Dictation General: awake, alert, NAD Head/Face: Normocephalic, atraumatic Eyes: PERRL, EOMI, vision at baseline ENT: oral cavity clear, TMs clear, no signs of infection Neck: Trachea midline, supple, no nuchal rigidity Cardiovascular: RRR, normal S1/S2, No MRGs, no JVD Respiratory: CTAB, no respiratory distress, No rales or wheezes Abdomen: Soft, non-tender, non-distended, normal bowel sounds, no guarding or rebound. Skin: Warm, dry, normal turgor, no rash MS/Extremity: Pulses equal, no cyanosis, neurovascular intact, FROM Neuro: COAx4, GCS 15, strength 5/5, CN 2-12 intact, normal cerebellar exam, normal gait, Psych: Normal behavior, mood, and affect normal Results (Laboratory/Radiology) Laboratory/Radiology Laboratory Tests Test 06/11/25 03:22 White Blood Count 7.3 K/uL (4.8-10.8) Red Blood Count 4.18 MIL/uL (4.00-5.50) Hemoglobin 12.4 g/dL (12.0-16.0) Hematocrit 36.0 % (36-48) Mean Corpuscular Volume 86.1 fL (79-99) Mean Corpuscular Hemoglobin 29.7 pg (27.0-33.0) Mean Corpuscular Hemoglobin Concent 34.4 g/dL (32.0-36.0) Red Cell Distribution Width 12.6 % (11.0-15.5) Platelet Count 213 K/uL (130-400) Mean Platelet Volume 9.1 fL (7.5-10.5) Immature Granulocyte % (Auto) 0.7 % (0-1) Neutrophils (%) (Auto) 68.7 % (40.0-77.0) Lymphocytes (%) (Auto) 19.7 % (21.0-51.0) L Monocytes (%) (Auto) 7.3 % (3.0-13.0) Eosinophils (%) (Auto) 3.2 % (0.0-8.0) Basophils (%) (Auto) 0.4 % (0.0-5.0) Neutrophils # (Auto) 5.0 K/uL (1.8-7.7) Lymphocytes # (Auto) 1.4 K/uL (1.0-4.8) Monocytes # (Auto) 0.5 K/uL (0.1-1.0) Eosinophils # (Auto) 0.23 K/uL (0.00-0.70) Basophils # (Auto) 0.03 K/uL (0.00-0.20) Absolute Immature Granulocyte (auto 0.05 K/uL (0-1) Nucleated Red Blood Cells 0.0 % (0.0-0.19) Troponin I High Sensitivity 7 ng/L (4-50) Lipase 60 U/L (16-77) ED Course ED Course Orders Procedure Category Date Status Time Cbc With Differential LAB 06/11/25 Complete 03:22 Troponin I High LAB 06/11/25 Complete Sensitivity 03:22 ,Urine Test LAB 06/11/25 Logged 03:22 Lactated Ringers PHA 06/11/25 Complete 1000ml (Lactated 03:30 Morphine 4mg Syg PHA 06/11/25 Complete (Morphine 4mg Syg) 03:30 Ondansetron 4mg Inj PHA 06/11/25 Complete (Zofran 4mg Inj) 03:30 Chest 1vw RAD 06/11/25 Resulted 03:22 Lipase LAB 06/11/25 Complete 03:22 Acetaminophen 325 Tab PHA 06/11/25 Complete (Tylenol 325mg Tab 04:30 12 Lead Ekg Tracing- EKG 06/11/25 Logged Technical 04:28 Current Medications Medications (Trade) Dose Ordered Sig/Erica Route PRN Reason Start Time Stop Time Status Last Admin Dose Admin Acetaminophen (TYLenol 325MG TAB) 650 mg ONCE ONCE PO 06/11/25 04:30 06/11/25 04:31 DC Lactated Ringer's 1,000 ml @ 0 mls/hr ONCE ONCE IV 06/11/25 03:30 06/11/25 03:37 DC 06/11/25 04:22 Morphine Sulfate (morPHINE 4MG SYG) 4 mg ONCE ONCE IVP 06/11/25 03:30 06/11/25 03:37 DC Ondansetron HCl (zoFRAN 4MG INJ) 4 mg ONCE ONCE IVP 06/11/25 03:30 06/11/25 03:37 DC Vital Signs Date Time Temp Pulse Resp B/P (MAP) Pulse Ox O2 Delivery O2 Flow Rate FiO2 06/11/25 03:30 98.2 95 15 123/80 99 Room Air* 0 21 06/11/25 03:11 98.2 107 17 125/83 98 Room Air 0 Medical Decision Making MDM Heart score of one. And that has tenderness palpation. Consistent with a costochondritis stress also skeletal MDM: Differential diagnosis: Rationale: Tests considered and ordered secondary to shared decision making include: Previous outside records reviewed: Old ER visits. Risk of complication and/or morbidity or mortality of patient management: None Medications-Per medication reconciliation Need for hospitalization: Patient does not meet criteria for hospitalization. Need for emergency major/minor surgery: No There are no social concerns with this patient. Prescription drug management Prescriptions will include symptomatic care Patient's prior external medical records from other ER visits were reviewed by me as indicated. Prior testing and results from previous visits were reviewed. Prior tests were taken into account with medical decision making and resource utilization, independent historian/historians were used to obtain complete medical history. I independently interpreted the test that were performed, results were reviewed by me and considered findings on radiology if ordered. Medical management and examination interpretation discussions were had by me with other qualified healthcare professionals as indicated for the patient's care. DX & DISP Disposition: Discharge Departure Impression: Primary Impression: Atypical chest pain Condition: Stable Referrals: MARLENA ZAVALA DO (PCP) MYAH SCHAEFFER MD Jun 11, 2025 03:24
[2025-06-11 03:33] LABS: IMMATURE GRANULOCYTE ABSOLUTE 0.05 K/uL (0-1); NUCLEATED RED BLOOD CELLS 0.0 % (0.0-0.19); PLATELET COUNT (AUTO) 213 K/uL (130-400); RED BLOOD CELL COUNT(AUTO) 4.18 MIL/uL (4.00-5.50); RED CELL DISTRIBUTION WIDTH 12.6 % (11.0-15.5); WHITE BLOOD COUNT (AUTO) 7.3 K/uL (4.8-10.8)
[2025-06-11] MEDS: LACTATED RINGERS 1000ML 1,000 ML IV ONE (04:22)
--- NOTE | 2025-06-11 04:24 | HMCIMG ---
EXAM: CR Chest, 1 view CLINICAL HISTORY: To evaluate chest. COMPARISON: Chest radiograph dated 05/09/2024. FINDINGS: Hyperinflated lungs, concerning mild bronchial asthma or COPD. The bilateral CP angles are excluded from the image. No large pleural effusion. No acute infiltrate, effusion, or pneumothorax. The cardiomediastinal silhouette is within normal limits. No acute osseous abnormality. IMPRESSION: Hyperinflated lungs, concerning mild bronchial asthma or COPD. No acute infiltrate, effusion, or pneumothorax. Complete interval improvement in the previously cardiopulmonary disease. /[place]
[2025-06-11 05:10] LABS: CREATININE 0.6 mg/dL (0.5-1.0); GLOMERULAR FILTR. RATE CALC 117.0 mL/min (>90); GLUCOSE,RANDOM 283.0 mg/dL (70-105); SODIUM SERUM 137.0 mmol/L (136-145); UREA NITROGEN, BLOOD 8.0 mg/dL (7-18)
[2025-06-11 05:15] LABS: TOTAL PROTEIN, SERUM 7.2 g/dL (6.0-8.3)
[2025-06-11 05:30] VITALS: BP 145/87; PULSE 88; RESP 16; TEMP 98.4; O2SAT 100
[2025-06-11 05:34] LABS: ASPARTATE AMINOTRANSFERASE 45.0 U/L (10-37)
--- NOTE | 2025-06-11 05:35 | NUR ---
PT VOICED THAT SHE WOULD LIKE TO SPEAK TO DOCTOR ABOUT NOT WANTING TO BE DISCHARGED. ED MD SCHAEFFER NOTIFIED ABOUT PT'S REQUEST. ED RN AND ED MD SCHAEFFER AT BEDSIDE. CHART REVIEWED WITH PT IN DETAIL WITH ED MD. PT DOES NOT MEET CRITERIA FOR ADMISSION. PT HAS BEEN FULLY EVALUATED BY ED MD. PER MD PT IS SAFE FOR DISCHARGE AT THIS TIME. DISCHARGE INSTRUCTIONS GIVEN TO PT REGAURDING NON-SPECIFIC CHEST PAIN. VITAL SIGNS STABLE. PT SHOWS NO SIGNS OF ACUTE DISTRESS.
--- NOTE | 2025-06-11 14:51 | EKG ---
[facility] Test Date: 2025-06-11 Test Time: 03:15:12 Pat Name: RINA REAVES Department: EDH Room: Gender: F Material Combiner: [id number] : 1985 Requested By: MYAH SCHAEFFER Order Number: [id number] Reading MD: Ross Gray Measurements Intervals [place] Rate: 98 P: 36 SD: 127 QRS: -7 QRSD: 90 T: 6 QT: 356 QTc: 454 Interpretive Statements Sinus rhythm Low voltage, precordial leads Consider anterior infarct Compared to ECG 05/04/2024 21:35:26 Low QRS voltage now present Myocardial infarct finding still present Electronically Signed On 06-12-2025 00:07:14 CDT by Ross Gray Please click the below link to view image of tracing.
== END 2025-06-11 05:58 | disposition home or self-care (01) ==
LOC: EDH 03:10
DX: R07.89 Other chest pain (principal); E11.9 Type 2 diabetes mellitus without complications; E78.00 Pure hypercholesterolemia, unspecified; J45.909 Unspecified asthma, uncomplicated; Z79.84 Long term (current) use of oral hypoglycemic drugs; Z79.899 Other long term (current) drug therapy; Z88.5 Allergy status to narcotic agent; Z90.710 Acquired absence of both cervix and uterus
CPT/HCPCS: 99285; 96360; 71045; 96361; 84484; 80053; 83690; 85025; 36415; 93005; J7120; J2270; J2405